=== PATIENT | female | born 1960 | race Caucasian/White ===

== ENCOUNTER 2023-07-14 10:22 | Emergency (ER) | payer OTHER ==
[~2023-07-14] VITALS: Ht 157.5 cm; Wt 63.6 kg
[2023-07-14] MEDS ORDERED: LISINOPRIL10 MG PO (11:05)
[2023-07-14 13:14] VITALS: BP 134/84
[2023-07-14 13:15] VITALS: BP 139/88
[2023-07-14 13:30] VITALS: BP 132/95
[2023-07-14] MEDS ORDERED: LORTAB 5/3255 MG PO (15:01)
[2023-07-14] MEDS ORDERED: METHOCARBAMOL500 MG PO (15:01)
[2023-07-14] MEDS ORDERED: MEDDOSEPAK PO (15:01)
[2023-07-14 15:08] VITALS: BP 132/95
== END 2023-07-14 15:08 | disposition home or self-care (01) | DRG 185 ==
LOC: ED 10:22
DX: S22.42XA Multiple fractures of ribs, left side, initial encounter for closed fracture (principal); W19.XXXA Unspecified fall, initial encounter; Y92.009 Unspecified place in unspecified non-institutional (private) residence as the place of occurrence of the external cause; Z98.890 Other specified postprocedural states